=== PATIENT | female | born 1990 | race Caucasian/White ===

== ENCOUNTER 2022-08-19 16:12 | Emergency (ER) | payer OTHER ==
[2022-08-19 16:24] VITALS: BP 149/106; PULSE 113; RESP 18; TEMP 98; BMI 30.6
[2022-08-19 17:21] LABS: BASO % 0.6 % (0-2.0); EOS % 0.7 % (0-4.5); HEMATOCRIT 38.2 % (32.4-45.2); HEMOGLOBIN 12.8 GM/dL (10.7-15.3); LYMPH % 19.6 % (8-40); MCH 28.5 pg (25.7-33.7); MCHC 33.5 g/dl (32.0-36.0); MEAN CELL VOLUME 85.2 fl (80-96); MEAN PLT VOLUME 7.5 fl (7.5-11.1); MONO % 7.2 % (3.8-10.2); NEUT % 71.9 % (42.8-82.8); PLATELET COUNT 320 10^3/uL (134-434); RBC 4.48 M/mm3 (3.60-5.2); RDW 12.5 % (11.6-15.6); WHITE BLOOD COUNT 10.9 K/mm3 (4.0-10.0)
[2022-08-19 17:24] LABS: EPI CELLS 7 /uL (0-25.1); HYALINE CASTS 0 /uL (0-3.1); URINE APPEARANCE CLEAR; URINE BACTERIA 101 /uL (0-1359); URINE BILIRUBIN NEGATIVE (NEGATIVE); URINE COLOR YELLOW; URINE GLUCOSE (UA) NEGATIVE (NEGATIVE); URINE KETONE NEGATIVE (NEGATIVE); URINE LEUK ESTERASE NEGATIVE (NEGATIVE); URINE NITRITE NEGATIVE (NEGATIVE); URINE PROTEIN NEGATIVE (NEGATIVE); URINE RBC 5 /uL (0-23.9); URINE UROBILINOGEN 0.2 mg/dL (0.2-1.0); URINE WBC 2 /uL (0-25.8)
[2022-08-19 17:41] LABS: ALBUMIN 4.2 g/dl (3.4-5.0); CALCIUM 9.4 mg/dL (8.5-10.1)
[2022-08-19 17:45] LABS: CREATININE 0.8 mg/dL (0.55-1.3)
[2022-08-19 17:46] LABS: BILIRUBIN,TOTAL 0.9 mg/dL (0.2-1); TOT PROT 8.4 g/dl (6.4-8.2)
[2022-08-19 18:15] LABS: HCG,QUALITATIVE URINE Negative
== END 2022-08-19 18:58 | disposition home or self-care (01) ==
LOC: JERFT 16:12 → JER 16:12 → JERFT 18:58
DX: N94.6 Dysmenorrhea, unspecified (principal)
CPT/HCPCS: 36415; 80053; 81003; 84703; 85025; 87086; 99283-25

== ENCOUNTER 2024-02-04 13:46 | Emergency (ER) | payer OTHER ==
[2024-02-04 13:55] VITALS: BP 125/73; PULSE 105; RESP 18; TEMP 98; BMI 32.9
[2024-02-04] MEDS ORDERED: ACETAMINOPHEN 500 MG TABLET (FP) ONE (15:03)
[2024-02-04] MEDS ORDERED: KETOROLAC TROMETHAMINE 30 MG/1 ML VIAL ONE (15:03)
[2024-02-04] MEDS ORDERED: CYCLOBENZAPRINE HCL 10 MG TABLET (FP) ONE (15:03)
[2024-02-04] MEDS: KETOROLAC TROMETHAMINE 30 MG/1 ML VIAL IM ONE (15:13)
[2024-02-04] MEDS: CYCLOBENZAPRINE HCL 10 MG TABLET (FP) PO ONE (15:13)
[2024-02-04] MEDS: ACETAMINOPHEN 500 MG TABLET (FP) PO ONE (15:14)
== END 2024-02-04 15:30 | disposition home or self-care (01) ==
LOC: JERFT 13:46 → JER 13:46 → JERFT 15:30
PROC: 3E0233Z Introduction of Anti-inflammatory into Muscle, Percutaneous Approach (ICD-10-PCS; principal; 2024-02-04)
DX: M54.42 Lumbago with sciatica, left side (principal); X50.1XXA Overexertion from prolonged static or awkward postures, initial encounter
CPT/HCPCS: 84703; 99284-25